=== PATIENT | male | born 2000 | race Caucasian/White ===

== ENCOUNTER → 2020-02-21 10:53 | Outpatient (BNVA) | payer MEDICAID, SELFPAY | PROVIDERS: Visit Provider Nurse Practitioner Family | DX: S40.012A Contusion of left shoulder, initial encounter (principal); S42.292A Other displaced fracture of upper end of left humerus, initial encounter for closed fracture; X58.XXXA Exposure to other specified factors, initial encounter | CPT/HCPCS: 73030 ==

== ENCOUNTER 2020-02-26 08:24 | Day surgery (SDC) | payer MEDICAID, SELFPAY ==
[2020-02-29 14:09] VITALS: BMI 18.1
[2020-03-01] VITALS (9 sets, daily range): BP systolic 106–130; BP diastolic 58–85; PULSE 54–98; RESP 16–20; TEMP 36.3–36.5; O2SAT 96–100
--- NOTE | 2020-03-01 | XR_ITS ---
WS: [id number] INTRAOPERATIVE TECHNIQUE: 3 Spot fluoroscopic images for intraoperative purposes. FLUOROSCOPY TIME: 37.8 seconds CLINICAL INFORMATION: ORIF SHOULDER COMPARISON: None. FINDINGS: Screw fixation greater tuberosity. 2 cannulated fixation screws. XR/XR shoulder LT min 2V* [id number] IMPRESSION: Images obtained for intraoperative purposes.
[2020-03-01] MEDS: sodium chloride 0.9% 1,000 ML 30 ML IV (06:50)
[2020-03-01] MEDS: CELEcoxib 200 mg Capsule 400 MG PO (06:50)
--- NOTE | 2020-03-01 06:59 | P.HPUD_ITS ---
Surgery/Procedure H&P Update DATE OF PROCEDURE: March 01, 2020 DATE H&P PERFORMED: 02/26/20 H&P UPDATE INFORMATION: I have reviewed H&P completed within last 30 days, I have examined patient prior to procedure, No changes to prior documentation and [place] [facility] [place] PREOP DIAGNOSIS: Left greater tuberosity fracture PLANNED PROCEDURE: Operation Date: 03/01/20 07:55 Proposed Procedures p ORIF Greater Tuberosity Humerus(Left) - Sheridan Souza MD Related Problem List Diagnoses (1) Fracture of greater tuberosity of humerus:
[2020-03-01] MEDS: fentaNYL 50 mcg/mL INJ 2mL 100 MCG IVP (07:20)
[2020-03-01] MEDS: midazolam 1 mg/mL INJ 2 mL 2 MG IVP (07:21)
--- NOTE | 2020-03-01 07:34 | ANES.PREANE2 ---
Pre-Anesthetic Assessment Pre-Anesthetic Assessment: Height/Weight: Height 1.8 m Weight 58.967 kg Temp Pulse Resp BP Pulse Ox 97.5 F L 76 18 125/80 99 03/01/20 06:18 03/01/20 06:18 03/01/20 06:18 03/01/20 06:18 03/01/20 06:18 Preop Diagnosis: Left greater tuberosity fracture Proposed Procedure: Operation Date: 03/01/20 07:55 Proposed Procedures p ORIF Distal Humerus(Left) - Sheridan Souza MD Was Beta Natalie taken within 24 hours: N/A Last intake: Intake Last Liquid Date 02/29/20 Last Liquid Time 21:00 Last Solid Date 02/29/20 Last Solid Time 21:00 Social: Social History: Alcohol and Tobacco Exam: Pre-Anes Outpt Exam: alert, oriented x 3, clear to auscultation bilaterally and regular rate & rhythm Airway: Submandibular: WNL Cervical ROM: WNL MP: 1 History/ROS: No significant complaints Pulmonary: Pulmonary: None reported CV/HEM: CV/HEM: None reported : : None reported Hepatic: Hepatic: None reported GI: GI: None reported Metabolic: Metabolic: None reported Musc/skel: Musc/skel: None reported Neuropsych: Neuropsych: None reported Anesthetic Plan: ASA status: 2 Anesthesia: General and Regional (specify below) (Left Interscalene Nerve Block ) Meds/Allergies Current Medications: Current Medications Generic Name Dose Route Start Last Admin Trade Name Freq PRN Reason Stop Dose Admin Sodium Chloride 1,000 mls @ 30 ml s/hr 03/01/20 06:00 03/01/20 06:50 Sodium Chloride 0.9% IV 03/02/20 05:59 30 mls/hr .Q24H DANIELLE Administration PFSH Anesthesia PFSH: Social History Smoking and tobacco status: current every day smoker cigarettes Packs smoked per day: 0.5 Alcohol intake: never Data Anesthesia Cardiac Studies: No Data to Display
--- NOTE | 2020-03-01 07:36 | ANES.PROC ---
Anesthesia Procedures Procedure/Date: 03/01/20 Nerve Block ^: Nerve Block 1: Main Anesthesia: general anesthesia Time Out Performed: Yes Consent: requested by attending/covering physician Nerve block location: interscalene Anesthesia monitors applied: pulse oximetry, EKG, BP cuff and oxygen Nerve block position: supine Anesthetic Used: lidocaine 1% (Local Infiltration ) and ropivicaine 0.5% (30ml of 0.5% ropiv injected ) Nerve Stimulator Used?: Yes Interscalene/Femoral BLK: 2 stimuplex 22 g needle used for position and inplane approach and no vascular puncture identified Injection: neg aspiration of heme Patient Tolerated Procedure: well and no complications Complications: none
--- NOTE | 2020-03-01 07:43 | PC.NURSE ---
0719-TIME OUT DONE FOR NERVE BLOCK FOR LEFT SHOULDER ORIF. PT VSS THROUGHOUT PROCEDURE. O2 ON AT 2L PER NC
[2020-03-01] MEDS: ceFAZolin 1,000 mg SDV 1000 MG IRRIGATION (10:00)
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
--- NOTE | 2020-03-01 14:42 | ANE.PACU2 ---
Inpatient post-anesthesia follow up: Airway intact: Yes Vital signs: Temperature 97.3 F Pulse Rate 64 Respiratory Rate 18 Blood Pressure 130/85 Pulse Oximetry 98 Oxygen Delivery Me thod Room Air Oxygen Flow Rate 8 Fraction of Inspir ed Oxygen Hydration adequate: Yes Nausea and vomiting: No Pain level: 2
== END 2020-03-01 11:53 | disposition home or self-care (01) ==
PROVIDERS: Referring Provider Nurse Practitioner Family; Visit Provider Specialist
PROC: (CPT 23615; principal; 2020-03-01 07:55)
DX: S42.252A Displaced fracture of greater tuberosity of left humerus, initial encounter for closed fracture (principal); Y04.2XXA Assault by strike against or bumped into by another person, initial encounter; F17.210 Nicotine dependence, cigarettes, uncomplicated
CPT/HCPCS: 23630; 12345; 73030; 76000; 96374; 96375; C1713; J0131; J0690; J1100; J2250; J2405; J2704; J2710; J2795; J3010; J3490; J7030

== ENCOUNTER 2020-02-26 13:40 | Outpatient (CLI) | payer MEDICAID, SELFPAY ==
--- NOTE | 2020-02-26 13:45 | MR_ITS ---
WS: [id number] MRI LEFT SHOULDER NONCONTRAST TECHNIQUE: Sagittal T2, coronal T1, T2 and proton density imaging. Axial gradient PDE imaging. CLINICAL INFORMATION: S42.292A - Other displaced fracture of upper end of left humerus, initial encou nter for closed fracture COMPARISON: None. FINDINGS: Normal AC joint. Distal clavicle is normal in appearance. Avulsion fracture involving the posterior l ateral humeral head with 2 adjacent fracture fragments measure 1.1 and 1.4 CM. Fracture fragments are displaced posterior and laterally to the donor site. Avulsion fracture involves the distal supraspin atus and infraspinatus insertion. Intrasubstance signal abnormality involving the distal supraspinat us and infraspinatus insertions with partial tears. No tendon retraction. Fracture fragments appear e ntrapped deep to the posterior supraspinatus and infraspinatus tendons with partial tears distally. Normal teres minor. Normal subscapularis. Biceps tendon is intact within the bicipital groove. Normal glenoid. Normal glenoid labrum. Small amount of fluid in the subcoracoid bursa. Diffuse edema involving the humeral head at the fract ure site. MR/MR shoulder LT wo con* [id number] IMPRESSION: 1. Avulsion fractures involving the posterior lateral humeral head with 2 disp laced fracture fragments. 2. Avulsion fractures entrapped posterior and laterally deep to the supraspina tus and infraspinatus tendons. 3. Partial tears involving the distal infraspinatus and supraspinatus tendons with T2 signal abnormality. No tendon retraction. 4. Displaced fracture fragments measure 11 and 14 mm respectively. 5. Glenoid appears normal. No edema involving the bony glenoid. Glenoid labrum appears normal. 6. Normal biceps tendon and biceps labral anchor. 7. Normal teres minor and subscapularis.
== END 2020-02-26 13:41 | disposition home or self-care (01) ==
LOC: RADSHAW 13:43
PROVIDERS: Visit Provider Specialist
DX: S42.292A Other displaced fracture of upper end of left humerus, initial encounter for closed fracture (principal); X58.XXXA Exposure to other specified factors, initial encounter; M75.102 Unspecified rotator cuff tear or rupture of left shoulder, not specified as traumatic
CPT/HCPCS: 73221; 87635